=== PATIENT | female | born 1970 | race Two or more races ===

== ENCOUNTER 2024-11-25 20:55 | Emergency (ER) | payer MEDICAID, SELFPAY ==
[2024-11-25 21:06] VITALS: BP 118/76; PULSE 66; RESP 16; TEMP 37; O2SAT 100
--- NOTE | 2024-11-25 21:13 | XR_ITS ---
Examination: CT brain head without contrast. 2-D sagittal coronal reconstructions Date and time of exam:November 19 10/11/2024, 2124 hours INDICATIONS: Onset headache today CTDI: vol (mGy):48.9 DLP: (mGycm):982 Technique: Multiple CT axial sections of the brain have been obtained, 5 mm slice thickness. Contrast has not been administered. 2-D sagittal, coronal reconstructions have been obtained Low dose protocols were performed. One or more of the following dose reduction techniques were used; automated exposure control, adjustment of the mA and/or KV according to patient size, use of iterative reconstruction technique. Findings: No significant ventricular enlargement. Intra-axial or extra-axial hemorrhage density is not seen. No mass effect or midline shift Basal cisterns are not remarkable. Fourth ventricle is midline. Cranial vault intact. Impression: Negative for acute hemorrhage, mass effect or midline shift
[2024-11-25 22:44] LABS: Basophils # (Auto) 0.0 Thou/mm3 (0.0-0.2); Basophils % (Auto) 1 % (0-2.5); Eosinophils # (Auto) 0.1 Thou/mm3 (0.0-0.5); Eosinophils % (Auto) 1 % (0-10); Hematocrit 35.9 % (36.0-46.0); Hemoglobin 11.7 g/dL (12.0-16.0); Immature Granulocytes Auto 0.01 Thou/mm3 (0.00-0.00); Lymphocytes # (Auto) 2.8 Thou/mm3 (1.0-4.8); Lymphocytes % (Auto) 47 % (10-50); Mean Corpuscular HGB Conc 32.6 g/dl (31.0-37.0); Mean Corpuscular Hemoglobin 27.3 pg (25.0-35.0); Mean Corpuscular Volume 84 fL (80-100); Monocytes # (Auto) 0.5 Thou/mm3 (0.0-0.8); Monocytes % (Auto) 9 % (0-12); Neutrophils # (Auto) 2.5 Thou/mm3 (1.8-7.7); Neutrophils % (Auto) 42 % (37-80); Nucleated Red Blood Cell # 0.00 Thou/mm3 (0.00-0.00); Nucleated Red Blood Cell % 0 /100 WBC (0); Platelet Count 251 Thou/mm3 (140-440); RDW Standard Deviation 50.1 fL (36.4-46.3); Red Blood Count 4.28 Miln/mm3 (4.00-5.20); White Blood Count 6.0 Thou/mm3 (3.6-11.0)
[2024-11-25 23:06] LABS: HCG,Qualitative Serum Negative
[2024-11-25 23:08] LABS: Alanine Aminotransferase 31 U/L (10-49); Albumin, Serum 4.6 gm/dL (3.5-5.0); Albumin/Globulin Ratio 1.7 (1.2-2.2); Alkaline Phosphatase 75 U/L (46-116); Anion Gap 8 (7-16); Aspartate Amino Transferase 29 U/L (0-34); BUN/Creatinine Ratio 8 Ratio (12-20); Bilirubin,Total 1.2 mg/dL (0.3-1.2); Blood Urea Nitrogen 8 mg/dL (9-23); Calcium 10.3 mg/dL (8.3-10.6); Calcium (Corrected) 10.3 mg/dL (8.5-10.1); Carbon Dioxide 29.0 mMol/L (20.0-31.0); Chloride 105 mMol/L (98-107); Creatinine (Component) 1.0 mg/dL (0.6-1.3); Globulin 2.7 gm/dL (2.3-3.5); Glucose 112 mg/dL (74-106); Osmolality,Calculated 282 (275-295); Potassium 4.0 mMol/L (3.4-5.1); Sodium 142 mMol/L (136-145); Total Protein 7.3 gm/dL (5.7-8.2); eGFR > 60 See Note
[2024-11-25] MEDS: SODIUM CHLORIDE 0.9% 1000 ML 1,000 ML 999 ML IV (23:21)
[2024-11-25] MEDS: ONDANSETRON INJ 2 MG/ML INJ 2 ML 4 MG IVP (23:22)
[2024-11-25] MEDS: KETOROLAC INJ 30 MG/ML VIAL IVP (23:22)
--- NOTE | 2024-11-25 23:22 | PD.EDHA ---
ED Headache RME/HPI General Chief Complaint: Headache Stated Complaint: HEADACHE Time Seen by Provider: 11/25/24 20:58 Arrival date/time: 11/25/24 20:55 This is a case of 54-year-old female with history of migraine headache came in in the emergency room due to frontal headache for 4 days associated with nausea vomiting patient states that she took his medication for migraine but no relief thus decided to sought consult here in the emergency room denies head injury denies any numbness weakness tingling sensation denies any blurring of vision denies dizziness Limitations: no limitations Related Data Previous Rx's ?Medication ?Instructions ?Recorded hydrocodone 5 mg-acetaminophen 325 1 tab PO BID PRN pain #10 tabs 05/01/22 mg tablet ibuprofen 400 mg tablet 400 mg PO TID PRN pain #14 tabs 05/01/22 [id number] 1 cap PO Q6H PRN headache #12 caps 11/25/24 50 mg-300 mg-40 mg capsule (Fioricet) ondansetron 4 mg disintegrating 4 mg PO Q8H PRN nausea and 11/25/24 tablet vomiting #12 tabs Allergies Allergy/AdvReac Type Severity Reaction Status Date / Time No Known Allergies Allergy Verified 11/25/24 20:56 Review of Systems Review of Systems Systems Reviewed: All systems reviewed, normal except as documented Constitutional Constitutional: Reports system reviewed and no additional complaints, except as documented, Reports as per HPI, Denies chills, Denies fever(s), Denies frequent falls, Reports headache(s) and Denies weakness Eyes Eyes: Reports system reviewed and no additional complaints, except as documented, Reports as per HPI, Denies blurry vision, Denies change in vision, Denies eye discharge, Denies exophthalmos and Denies loss of vision ENT Ears, Nose, Mouth, and Throat: Reports system reviewed and no additional complaints, except as documented, Reports as per HPI, Denies abnormal hearing, Denies disequilibrium, Denies dizziness, Reports headache(s) and Denies vertigo Cardiovascular Cardiovascular: Reports system reviewed and no additional complaints, except as documented, Reports as per HPI and Denies syncope Respiratory Respiratory: Reports system reviewed and no additional complaints, except as documented and Reports as per HPI Gastrointestinal Gastrointestinal: Reports system reviewed and no additional complaints, except as documented, Reports as per HPI, Denies abdominal pain, Reports nausea and Reports vomiting Musculoskeletal Musculoskeletal: Reports system reviewed and no additional complaints, except as documented, Reports as per HPI, Denies abnormal gait, Denies numbness and Denies tingling Neurologic Neurologic: Reports system reviewed and no additional complaints, except as documented, Reports as per HPI, Denies abnormal gait, Denies abnormal hearing, Denies abnormal movements, Denies abnormal speech, Denies behavioral changes, Denies burning sensations, Denies confusion, Denies convulsions, Denies disequilibrium, Denies dizziness, Denies localized weakness, Denies frequent falls, Reports headache(s), Denies lack of coordination, Denies loss of vision, Denies memory loss, Denies numbness, Denies other visual disturbances, Denies paresthesias, Denies radicular pain, Denies restless legs, Denies seizure-like activity, Denies sensory deficit, Denies syncope, Denies tingling, Denies tremor(s), Denies vertigo and Denies weakness Psychiatric Psychiatric: Denies behavioral changes, Denies confusion and Denies memory loss Past Medical History Past Medical History CARDIAC: Negative Congestive Heart Failure RESPIRATORY: Negative Chronic Obstructive Pulmonary Disease (COPD) GENITOURINARY: Negative Renal Disease ENDOCRINE: Negative Diabetes Mellitus Type 1 or Diabetes Mellitus Type 2 Social History SMOKING STATUS: Never smoker ED Exam General Limitations: Present no limitations General appearance: Present alert, in no apparent distress and other (Patient is awake alert oriented not in distress nontoxic looking well-hydrated well-nourished) Head Head exam: Present atraumatic, normocephalic and normal inspection Eye Eye exam: Present normal appearance, PERRL, EOMI and other (perrl eom intact no hyphema no pappiledema) ENT ENT exam: Present normal exam, normal oropharynx, mucous membranes moist and other (HEENT exam is normal) Neck Neck exam: Present normal inspection, full ROM, trachea midline and other (Negative for meningeal sign); Absent tenderness, meningismus, lymphadenopathy or thyromegaly Chest Chest inspection: Present normal inspection and symmetric chest wall rise; Absent tenderness Respiratory Respiratory exam: Present normal lung sounds bilaterally; Absent respiratory distress, wheezes, stridor, accessory muscle use or prolonged expiratory phase Cardiovascular Cardiovascular exam: Present regular rate and normal rhythm; Absent bradycardia, tachycardia, irregular rhythm, normal heart sounds or diastolic murmur Abdominal Exam Abdominal exam: Present soft and normal bowel sounds; Absent distention, tenderness, guarding, rebound, rigidity, diminished bowel sounds, hyperactive bowel sounds or hypoactive bowel sounds Extremities Exam Extremities exam: Present normal inspection and full ROM Back Exam Back exam: Present normal inspection and full ROM Neurological Exam Neurological exam: Present alert, oriented X3, CN II-XII intact, normal gait, reflexes normal and other (Awake alert oriented x 4 no focal deficit GCS 15/15 steady gait memory intact no slurring speech no facial droop motor or sensory reflex were all normal in all extremities no Babinski); Absent motor sensory deficit Expanded Neurological Exam Patient oriented to: Present person, place and time Cranial nerves: Normal: EOM function (II, III, IV, ), facial sensation (V), facial palsy (VII), gag reflex (IX), spinal accessory function (XI) and tongue deviation (XII) Cerebellar function: Normal: finger to nose and heel to butler Cerebellar function: Present normal gait Motor strength - LUE: 5/5 Motor strength - RUE: 5/5 Motor strength - LLE: 5/5 Motor strength - RLE: 5/5 Upper motor neuron exam: Normal: alex neglect, pronator drift, Babinski sign and sensory extinction Sensory exam upper extremity: Normal: light touch, pin prick, temperature and 2 point discrimination Sensory exam lower extremity: Normal: light touch, pin prick, temperature and 2 point discrimination DTR: 2+: biceps (L) and biceps (R) Psychiatric Psychiatric exam: Present normal affect and normal mood Skin Skin exam: Present warm, dry, intact and normal color Course Quality Measures none Orders Category Date Time Status Insert IV NOW Care 11/25/24 23:[address] head/brain wo con Stat Exams 11/25/24 21:13 Completed CBC Stat Lab 11/25/24 22:21 Completed CMP [Comprehensive Metabolic Panel] Stat Lab 11/25/24 22:21 Completed HCG,Qualitative Serum Stat Lab 11/25/24 22:21 Completed DiphenhydrAMINE INJ [Benadryl Inj] Med 11/25/24 22:57 Discontinued 25 mg IVP X1 ONE Ketorolac Inj [Toradol Inj] Med 11/25/24 22:57 Discontinued 30 mg IVP X1 ONE Ondansetron Inj [Zofran Inj] Med 11/25/24 22:57 Discontinued 4 mg IVP X1 ONE Sodium Chloride 0.9% 1000 ml [Ns] 1,000 ml Med 11/25/24 22:57 Active IV 999 mls/hr Vital Signs Vital signs: Vital Signs Temperature 98.6 F 11/25/24 21:06 Pulse Rate 66 11/25/24 21:06 Respiratory Rate 16 11/25/24 21:06 Blood Pressure 118/76 11/25/24 21:06 Pulse Oximetry (%) 100 11/25/24 21:06 Oxygen Delivery Method Room Air 11/25/24 21:06 Patient is afebrile not tachycardic not tachypneic not toxic BP stable oxygen saturation is 100% in room air Headache MDM Narrative MDM Narrative:: This is a case of 54-year-old female with history of migraine headache came in in the emergency room due to frontal headache for 4 days associated with nausea vomiting patient states that she took his medication for migraine but no relief thus decided to sought consult here in the emergency room denies head injury denies any numbness weakness tingling sensation denies any blurring of vision denies dizziness physical examination patient is awake alert oriented not in distress nontoxic looking lungs sound is clear no crackles no rales no retraction no stridor negative for meningeal sign excellent skin turgor heart normal rate regular rhythm no murmur abdomen soft no guarding no rebound no rigidity neurological exam is normal awake alert oriented x 4 no focal deficit GCS 15/15 steady gait memory intact no slurring speech no facial droop motor or sensory reflex normal negative Babinski the rest of the physical examination neurological exam is normal and unremarkable blood test showed no leukocytosis no anemia kidney and liver function is normal no electrolyte imbalance urinalysis is normal patient CT scan is normal and unremarkable at this point patient will be treated as migraine headache patient was given a bolus of normal saline with Toradol Benadryl and Zofran after 1 hour patient condition markedly improved and resolved patient will be discharged home in stable condition I have a long discussion with the patient the need to see a neurologist for further evaluation and treatment of her migraine headache patient will follow-up with PCP in 2 days for reevaluation and for any worsening symptoms recurrence of symptoms return precaution to the ER was advised Patient was discharged with comfortable condition walking with stable gait. Patient verbalized no further complains explained diagnosis and answered patient question. Patient is comfortable with the proposed management plan including the need to follow up with his/her primary care physician and any specialist if applicable Discussed patient for any urgent condition or worsening sx, He/She needed to go to emergency room immediately or call 911. Patient acknowledge the responsibility to follow up as instructed and to monitor her/his symptoms. For any persistence of the symptoms for more than 3-5 days return precaution advised. Discussed the result of the test and was given printed discharge instruction Patient data External records reviewed:: [facility] previous records Clinical information provided by:: patient and family Social determinants that could affect healthcare access:: none Patient has the following chronic illnesses:: None How is presenting disease/condition affected by chronic disease/condition?: no chronic disease Evaluation data The following diagnostics were reviewed and interpreted by me:: lab results and radiology exam(s) Lab and/or radiology exams considered but not ordered:: Reviewed Interpretation Summary: Reviewed Medications / Prescriptions Medications or Prescriptions considered but not ordered:: Given Medication administrations:: Medication Administration History Sodium Chloride (Ns) 1,000 mls @ 999 mls/hr IV .Q1H1M ONE Stop: 11/25/24 23:57 Discontinued Medications Diphenhydramine HCl (Diphenhydramine Inj 50 Mg/Ml Vial) 25 mg IVP X1 ONE Stop: 11/25/24 22:58 Ketorolac Tromethamine (Ketorolac Inj 30 Mg/Ml Vial) 30 mg IVP X1 ONE Stop: 11/25/24 22:58 Ondansetron HCl (Ondansetron Inj 2 Mg/Ml Inj 2 Ml) 4 mg IVP X1 ONE; Protocol Stop: 11/25/24 22:58 Given Consultations Consultation(s) initiated? (list below): No Diagnosis Differential diagnosis headache: migraine, tension headache, headache and sinusitis Most likely diagnosis given after review of the tests above:: Migraine headache Admission Indicated Admission indicated?: not indicated Explain why admission is indicated or not indicated:: Not indicated Admission Request Was there a request for admission?: No Admission Attestation Admission request attestation: Not indicated Disposition Plan Disposition Plan: Discharge Discharge Attestation Discharge Attestation: The patient and all family members were given an opportunity to ask questions and understood the discharge instructions. Discharge instructions specifically effects, indications for sooner follow up or return to the emergency department, and the expected course of current diagnosis. Patient condition: Stable Discharge Plan Plan Patient Disposition: HOME (Self Care) Prescriptions/Referrals Prescriptions/Med Rec: New wrvfjbucsh-hlatszsnxueze-[id number] [Fioricet] 50-300-40 mg capsule 1 cap PO Q6H PRN (Reason: headache) Qty: 12 0RF ondansetron 4 mg tablet,disintegrating 4 mg PO Q8H PRN (Reason: nausea and vomiting) Qty: 12 0RF No Action hydrocodone-acetaminophen 5-325 mg tablet 1 tab PO BID MDD 2 PRN (Reason: pain) Qty: 10 0RF ibuprofen 400 mg tablet 400 mg PO TID PRN (Reason: pain) Qty: 14 0RF Referrals: Makayla Matute [Primary Care Provider] - In 1 week Problem List Clinical Impression: Headache Patient/Caregiver Discharge Instructions Education Materials: Self-Care for Headaches Additional Instructions: Follow-up with your primary care physician in 2 days for reevaluation and to be referred to a neurologist for further evaluation and treatment of your migraine headache for any recurrence persistent worsening symptoms or any emergent concern call 911 or go to the nearest emergency room continue your medication for migraine headache and take only Fioricet as needed for severe headache increase water intake keep hydrated spatulate Gatorade for hydration Print Language: Thai Stand Alone Forms: Kourtney Award Info., Patient Portal Info Letter PA/DENTAL APPLIANCE REPAIRER Supervising Physician PA/WILL Supervising Physician: DR Whitehead
== END 2024-11-25 23:52 | disposition home or self-care (01) ==
PROVIDERS: Nurse Practitioner Family; Emergency Provider Emergency Medicine; PCP Physician Assistant
DX: R51.9 Headache, unspecified (principal)
CPT/HCPCS: 36415; 70450; 80053; 84703; 85025; 96374; 96376; 99283; J1200; J1885; J2405; J7030